=== PATIENT | female | born 1970 | race African-American/Black ===

== ENCOUNTER 2018-05-30 01:29 | Inpatient (IN) | payer OTHER ==
[~2018-05-30] VITALS: Ht 162.6 cm; Wt 140.0 kg
[2018-05-30] MEDS ORDERED: RANITIDINE HCL150 M1 (01:44)
[2018-05-30] MEDS ORDERED: PNEU16DI2 (01:44)
[2018-05-30] MEDS ORDERED: OMEPRAZOLE20 MG (01:44)
--- NOTE | 2018-05-30 01:46 | NUR ---
SE RECIBE PTE ALERTA Y ORIENTADA POR AVNESSA. PTE REFIERE PRESENTAR DOLOR EN CUADRANTE SUPERIOR SHERICE DEL ABDOMEN DESDE EL CYNTHIA.
--- NOTE | 2018-05-30 02:50 | NUR ---
PT ALERTA Y ORIENTADO X3 ESFERAS SE LE ORIENTA SOBRE TX Y REFIERE ENTEDER. SE THU MUESTRAS DE DARCY Y VENOPUNCION CON TECNICAS ASEPTICAS. SE ADMINISTRAN MEDICAMENTOS ORDENADOS. PT TOLERA TX.
--- NOTE | 2018-05-30 10:23 | NUR ---
SE RECIBE DE TURNO ANTERIOR. PACIENTE FEMENINA. ALERTA Y ORIENTADA. CABECERA A 30 GRADOS. BARANDAS ELEVADAS POR BURGER SEGURIDAD. BUEN PATRON RESPIRATORIO. PIEL TIBIA AL TACTO. CANALIZACION PATENTE, LORNA DE EDEMA Y/O ENROJECIMIENTO RECIBIENDO 0.9%NSS @150 ML/HR. PACIENTE EN ESPERA DE CONSULTA CON DR MEJIA. SE MANTIENE BAJO OBSERVACION POR CAMBIOS.
--- NOTE | 2018-05-30 15:45 | NUR ---
PTE ALERTA Y ORIENTADA X 3 ESFERAS EN COMPANIA DE FAMILIAR,EN KIARRA CON BARANDAS ELEVADAS,AREA DE VENOPUNCION PATENTE Y LORNA DE EDEMA CON FLUIDOS DE MANTENIMIENTO BAJANDO SIN DIFICULTAD.PTE NO REFIERE DOLOR AL MOMENTO,PENDIENTE A EVALUACION DE DR SU.
== END 2018-06-08 17:59 | disposition home or self-care (01) | DRG 414 ==
LOC: ER 01:29 → MEDI 05-31 06:41 → SEC-K 05-31 06:41 → MEDJ 05-31 10:25 → MEDI 05-31 10:25
PROVIDERS: Surgery; ADMIT Student in an Organized Health Care Education/Training Program
PROC: BF37ZZZ Magnetic Resonance Imaging (MRI) of Pancreas (ICD-10-PCS; 2018-05-31)
PROC: 0FC98ZZ Extirpation of Matter from Common Bile Duct, Via Natural or Artificial Opening Endoscopic (ICD-10-PCS; 2018-06-02)
PROC: 0FC78ZZ Extirpation of Matter from Common Hepatic Duct, Via Natural or Artificial Opening Endoscopic (ICD-10-PCS; 2018-06-02)
PROC: 0WJG4ZZ Inspection of Peritoneal Cavity, Percutaneous Endoscopic Approach (ICD-10-PCS; 2018-06-03)
PROC: 0D9W30Z Drainage of Peritoneum with Drainage Device, Percutaneous Approach (ICD-10-PCS; 2018-06-03)
PROC: 0FT40ZZ Resection of Gallbladder, Open Approach (ICD-10-PCS; principal; 2018-06-03 13:00)
DX: K80.64 Calculus of gallbladder and bile duct with chronic cholecystitis without obstruction (principal); K85.10 Biliary acute pancreatitis without necrosis or infection; N13.1 Hydronephrosis with ureteral stricture, not elsewhere classified; K66.0 Peritoneal adhesions (postprocedural) (postinfection); Z53.31 Laparoscopic surgical procedure converted to open procedure